=== PATIENT | male | born 1940 ===

== ENCOUNTER 2019-12-06 10:41 | Outpatient (RCR) | payer MEDICARE, SELFPAY ==
[2019-12-06 10:56] VITALS: BMI 20.5
[2019-12-06 11:03] VITALS: BMI 20.5
== END 2020-02-20 15:58 | disposition home or self-care (01) ==
LOC: ANHDMC 10:41
PROVIDERS: Visit Provider Internal Medicine
DX: R63.4 Abnormal weight loss (principal); Z71.3 Dietary counseling and surveillance
CPT/HCPCS: 97802